=== PATIENT | female | born 1955 | race Caucasian/White ===

== ENCOUNTER 2023-06-26 12:56 | Outpatient (AMB) | payer MEDICARE, SELFPAY ==
--- NOTE | 2023-06-26 13:10 | MHC.OFFVIS ---
Intake Intake Visit Reasons: second opinion Intake Note: New Patient presents for initial visit for 2nd opinion interstitial cystitis Urology Medications: none Blood Thinner:none Head Of Product Required: No Accompanied by: Spouse Allergies unknown allergies Allergy (Uncoded 06/26/23 13:34) Unknown HPI HPI Comments History of Present Illness Details This is a 68-year-old female patient. She presents to the office today as a new patient for a 2nd opinion. In discussion with the patient today she reports previously following up with [facility] for her ongoing lower urinary tract symptoms. In review of patient's chart it appears patient with rectocele, cystocele, and intussusception with a pessary in place. It appears she was treated for interstitial cystitis. Rescue solution and installation teaching was completed at previous urology clinic. Chocolate is a known interstitial cystitis trigger for her. She continues to follow IC diet, taking Prelief, azo, and p.r.n. hypophen. However feels Hyophen worsen her AFib symptoms. She was previously given samples of Gemtesa however felt symptoms of retention and thus discontinued medication immediately. It appears patient was considering Botox however given bladder pain/pressure is her main concern and not urinary urge and frequency thus Botox was not considered. She was offered trial of interstitial cystitis medications such as Elmiron, hydroxyzine, and amitriptyline but she is worried this may worsen her atrial fibrillation. She discusses following up with [facility] regarding her cystocele, rectocele, and pessary. She discusses having a surgical evaluation for repair however has not proceeded with surgical intervention given her 6 week postop recovery period and recommendations were made for absence during this period. In office urinalysis results reviewed with the patient today. 1+ leukocytes positive nitrates. Discussed other options for question of interstitial cystitis such as in office cystoscopy, cystoscopy with hydrodistention, low-dose Cialis, or low-dose antibiotic therapy. Discussed at length bladder triggers and pelvic floor therapy. Patient discusses her upcoming trip to [place] and will undergo pelvic floor therapy there due to the limited availability on this area. She currently reports urinary frequency, urinary urgency, and bladder pressure. Discussed obtaining retroperitoneal ultrasound for further assessment evaluation and will send urine today for urine culture. Discussed, educated, and stressed the importance of drinking plenty of water daily. She otherwise offers no other issues or concerns at this time. [facility] Medical History (Updated 06/26/23 @ 14:35 by MELIA Hernandez) Palpitations Atrial fibrillation Review of Systems Eyes Reports no additional complaints ENT Reports no additional complaints Card Reports as per HPI Resp Reports no additional complaints GI Reports as per HPI Reports as per HPI Musc Reports no additional complaints Neuro Reports no additional complaints Psych Reports no additional complaints Endo Reports no additional complaints Clifton/Lymph Reports no additional complaints Aller/Immun Reports no additional complaints Physical Exam Const General: cooperative, healthy appearing, comfortable, no acute distress, well developed, alert and awake Nutritional Appearance: thin Orientation/consciousness: patient oriented x3 Limitations: no limitations HEENT Head: Yes normal to inspection, Yes normocephalic and Yes atraumatic Ears: hearing grossly normal bilaterally Eyes General: appearance normal, both eyes and all related structures Neck Neck: Yes normal visual inspection and Yes trachea midline Chest Chest palpation & inspection: normal inspection of the chest Resp Effort & Inspection: normal respiratory effort and able to speak in complete sentences Cardio Rate: regular rate GI Inspection: Yes normal to inspection General: Yes no CVA tenderness Back/Spine/Pelvis Back: no CVA tenderness Skin General skin exam: no rashes or lesions noted Neuro General: patient oriented x3 Extrem General: Yes normal to inspection Psych Appearance: grossly normal and well kempt Mental Status: mental status grossly normal Speech and movement: Normal speech and movement present and Clear speech present Affect: normal affect Attitude: cooperative Thought process: Normal thought process present Thought content: Normal thought content present Insight: Fair insight present (Psych) Judgement: Fair judgement present (Psych) Results AMB Urinalysis, Automated UA Leukoctes 15 Param/uL Last Edit by Raj Avendano on 06/26/23 14:00 UA Nitrite Positive Last Edit by Raj Avendano on 06/26/23 14:00 UA Urobilinogen 0.2 mg/dL Last Edit by Raj Avendano on 06/26/23 14:00 UA Protein 0 mg/dL Last Edit by Raj Avendano on 06/26/23 14:00 UA pH 6.5 Last Edit by Raj Avendano on 06/26/23 14:00 UA Blood 0 David/uL Last Edit by Raj Avendano on 06/26/23 14:00 UA Specific Bryant 1.015 Last Edit by Raj Avendano on 06/26/23 14:00 UA Ketone Negative Last Edit by Raj Avendano on 06/26/23 14:00 UA Bilirubin 0 mg/dL Last Edit by Raj Avendano on 06/26/23 14:00 UA Glucose 0 mg/dL Last Edit by Raj Avendano on 06/26/23 14:00 Results Reviewed Results Reviewed: Laboratory Last Values Urine pH (Auto) 6.5 06/26/23 13:36 Specific Bryant (Auto) 1.015 06/26/23 13:36 Urine Protein (Auto) 0 mg/dL 06/26/23 13:36 Glucose (UA)(Auto) 0 mg/dL 06/26/23 13:36 Urine Ketones (Auto) Negative 06/26/23 13:36 Urine Blood (Auto) 0 David/uL 06/26/23 13:36 Urine Nitrite (Auto) Positive 06/26/23 13:36 Urine Bilirubin (Auto) 0 mg/dL 06/26/23 13:36 Urine Urobilinogen (Auto) 0.2 mg/dL 06/26/23 13:36 Leukocyte Esterase (Auto) 15 Param/uL 06/26/23 13:36 Assessment & Plan Assessment & Plan (1) Presence of pessary: Code(s): Z96.0 - Presence of urogenital implants (2) Cystocele with prolapse: Code(s): N81.4 - Uterovaginal prolapse, unspecified (3) Rectocele: Code(s): N81.6 - Rectocele (4) Sensation of pressure in bladder area: Code(s): R39.89 - Other symptoms and signs involving the genitourinary system (5) Urinary urgency: Code(s): R39.15 - Urgency of urination (6) Urinary frequency: Code(s): R35.0 - Frequency of micturition Plan In office urinalysis results reviewed with the patient today; will send for urine culture. Start low-dose Macrobid therapy as discussed and prescribed. Patient with borderline hypotension; thus low-dose Cialis might not be an option at this time. Discussed obtaining retroperitoneal ultrasound for further assessment evaluation. Discussed bladder triggers/irritants and interstitial cystitis diet. Continue/start pelvic floor therapy as discussed. Will plan for in office cystoscopy for further assessment evaluation Orders: Orders AMB Urinalysis Automated Today Z13.9 - Encounter for screening, unspecified US retroperitoneal comp Today N81.4 - Uterovaginal prolapse, unspecified, N81.6 - Rectocele, R35.0 - Frequency of micturition, R39.15 - Urgency of urination, R39.89 - Other symptoms and signs involving the genitourinary system, Z96.0 - Presence of urogenital implants Urine Culture Today R39.15 - Urgency of urination Medications: New nitrofurantoin macrocrystal must administer with a meal/food 50 mg PO BEDTIME 90 days 90 caps 1RF N39.0 - Urinary tract infection, site not specified Patient Instructions: The patient had an opportunity to ask questions regarding the treatment plan. All questions were answered. Physical exam, labs, and imaging were discussed and reviewed in detail. As well as risks, benefits, and discussion of treatment choices. No major barriers to understanding were identified. The patient expressed understanding and agreement with the above treatment plan. The patient was made aware they should contact our office by phone for worsening of their current condition, the appearance of new symptoms, or with any questions or concerns. Compliance is encouraged with any medications and follow up testing that is ordered. It is a privilege to be allowed the opportunity to participate in? your urological care.? Again, if you have any questions or concerns If you have any questions or concerns please do not hesitate to contact me. The office is [phone]. This note is constructed using voice recognition software. While every effort has been made to ensure accuracy security operations engineer errors may have been included. Yours sincerely, MELIA Hernandez Coding Level of Care Code New Pt Level 4 (38142) Diagnoses Presence of pessary Z96.0 Cystocele with prolapse N81.4 Rectocele N81.6 Sensation of pressure in bladder area R39.89 Urinary urgency R39.15 Urinary frequency R35.0
== END 2023-06-26 14:08 | disposition home or self-care (01) ==
PROVIDERS: Visit Provider Nurse Practitioner Family
DX: Z96.0 Presence of urogenital implants (principal); N81.4 Uterovaginal prolapse, unspecified; N81.6 Rectocele; R39.89 Other symptoms and signs involving the genitourinary system; R39.15 Urgency of urination; R35.0 Frequency of micturition; Z13.9 Encounter for screening, unspecified
CPT/HCPCS: 99204

== ENCOUNTER 2023-06-26 12:56 | Outpatient (REF) | payer MEDICARE, SELFPAY | END 2023-06-26 12:57 | disposition home or self-care (01) | LOC: HO.LNP 12:56 | PROVIDERS: Visit Provider Nurse Practitioner Family | DX: R39.15 Urgency of urination (principal); N81.4 Uterovaginal prolapse, unspecified; R35.0 Frequency of micturition; R39.89 Other symptoms and signs involving the genitourinary system | CPT/HCPCS: 81003; 87086 ==

== ENCOUNTER 2023-06-28 15:07 | Emergency (ER) | payer MEDICARE, SELFPAY ==
--- NOTE | ~2023-06-28 | XR_ITS ---
EXAMINATION: XR ABDOMEN COMPLETE CLINICAL INDICATION: Reason for Exam constipation COMPARISON: None TECHNIQUE: 2 views of the abdomen. FINDINGS: Lines or devices: None. Nonobstructive bowel gas pattern. Mild colonic stool burden. No extraluminal subdiaphragmatic air. Calcified phleboliths in the pelvis. Indeterminate 9 mm sclerotic lesion in the left iliac bone. XR/XR abdomen min 2V IMPRESSION: 1. Nonobstructive bowel gas pattern. Mild colonic stool burden. 2. Indeterminate 9 mm sclerotic lesion in the left iliac bone. In the absence of any primary history of malignancy, findings may reflect a bone island. If patient has a history of malignancy a CT pelvis or bone scan could be obtained for further evaluation.
--- NOTE | 2023-06-28 15:43 | ED.ABDPAIN ---
HPI - Abdominal Pain General Chief Complaint: Urogenital-Female Stated Complaint: abdominal pain, vomiting Time Seen by Provider: 06/29/23 01:06 Source: patient Mode of arrival: ambulatory Limitations: no limitations History of Present Illness HPI narrative: Patient's history of interstitial cystitis been followed by [facility] for long time seen by [facility] on 06/26/2023 for 2nd opinion with history of rectocele, cystocele and intussusception with the pessary in place on low-dose Macrobid comes here for ongoing suprapubic pain plan to have retroperitoneal ultrasound and cysoscopy as outpatient, sees that she vomited 2 times yesterday and once today labs were done prior to my evaluation showed sodium of 128 patient is concerned about sodium. Urine shows nitrite positive no bacteria previous culture was negative no fever no chills no abdominal distension had watery stool in the morning today bladder scan done showed 76 cc of urine Related Data Home Medications Medication Instructions Recorded Confirmed estradiol 0.01% (0.1 mg/gram) vaginal 06/26/23 vaginal cream evolocumab 140 mg/mL subcutaneous mg subcut 06/26/23 pen injector (Rivera Flaherty) lorazepam 1 mg tablet 1 mg PO DAILY PRN 06/26/23 sertraline 25 mg tablet 25 mg PO DAILY 06/26/23 zolpidem 10 mg tablet 10 mg PO BEDTIME PRN 06/26/23 Previous Rx's Medication Instructions Recorded nitrofurantoin macrocrystal 50 mg 50 mg PO BEDTIME 90 days #90 caps 06/26/23 capsule tramadol 50 mg tablet 50 mg PO Q8-10H PRN pain #20 tabs 06/29/23 Allergies Allergy/AdvReac Type Severity Reaction Status Date / Time unknown allergies Allergy Unknown Uncoded 06/26/23 13:34 Review of Systems Review of Systems Yes all other systems are reviewed and are negative PMFSH Past Medical History Medical History Palpitations Atrial fibrillation Social History Social History Alcohol intake: never Smoked in Last 30 Days: No Use of substances other than those prescribed or required for medical reasons: No Advance Directives: No Advance Directives Information Provided: Yes Physical Exam ED Vital Signs: Vital Signs - 24 hr 06/28/23 15:44 06/29/23 00:02 06/29/23 01:45 Temperature 99.4 F 97.8 F 97.9 F Pulse Rate 84 51 58 Respiratory Rate 16 16 16 Blood Pressure 155/84 H 105/58 L 107/61 Pulse Oximetry 98 99 95 Oxygen Delivery Method Room Air Room Air Room Air BMI result Body Mass Index 21.6 Appearance: Alert. Oriented X3. No acute distress. Eyes: No pallor or icterus ENT: Pharynx normal. Oral Mucosa moist Neck: Normal inspection. Neck supple. CVS: Normal heart rate and rhythm. Pulses normal. Respiratory: No respiratory distress. Equal air entry bilateral, no wheezing/rales/rhonchi Abdomen: Soft, mild suprapubic tenderness Bowel sounds are present, no mass palpable, no CVA tenderness Skin: Skin warm and dry. Normal skin color. Normal skin turgor. Extremities: No lower extremity edema. No calf tenderness Neuro: Oriented X 3. No motor deficit. Course Course Course Narrative: RME: 68yo F w/PMHx cystocele w/prolapse, rectocele, c/o urinary retention x4hrs, nausea, dysuria, constipation x mos (small BM this AM). Saw urology on 06/26, started on Macrobid. Also taking Azo w/o relief. Labs, UA, Bladder scan ordered Full HPI, ROS and PE to be performed by primary ED provider. Medical Decision Making Medical Decision Making [facility] Narrative: Patient with chronic interstitial cystitis with slightly rules low sodium of 128 likely from decreased oral sodium intake and vomiting which was replaced by IV fluids check patient home advised to follow-up with urologist Differential Diagnosis Differential Diagnoses: The differential diagnosis associated with the presentation includes Chronic interstitial cystitis/cystocele/UTI Lab Data [facility] Lab Attestation statement: I reviewed the patient's lab results. 06/28/23 16:24 06/28/23 16:24 Labs: Lab Results 06/28/23 Range/Units 16:24 WBC 6.3 (4.8-10.8) X10*3/uL RBC 3.97 L (4.20-5.50) X10*6/uL Hgb 12.1 (12.0-16.0) g/dl Hct 35.6 L (37.0-47.0) % MCV 89.7 (80.0-98.0) fL MCH 30.5 (27.0-33.0) pg MCHC 34.0 (31.0-35.0) g/dl RDW 11.8 (11.0-16.0) % Plt Count 270 (160-400) X10*3/uL MPV 9.4 (9.4-12.3) fL Immature Gran % (Auto) 0.3 (0.0-0.4) % Neut % (Auto) 74.5 H (45-73) % Lymph % (Auto) 18.5 L (20-40) % Lewis % (Auto) 6.5 (2-11) % Eos % (Auto) 0.0 (0-4) % Baso % (Auto) 0.2 (0-2) % Lymph # (Auto) 1.2 (1.2-4.9) X10*3/uL Lewis # (Auto) 0.4 (0.1-1.2) X10*3/uL Eos # (Auto) 0.0 (0.0-0.4) X10*3/uL Baso # (Auto) 0.0 (0.0-0.2) X10*3/uL Abs Immat Gran (auto) 0.02 (0.00-0.03) X10*3/uL Absolute Neuts (auto) 4.7 (2.0-8.3) x10*3/uL Absolute Nucleated RBC 0.000 (0.0-0.012) X10*3/uL Nucleated RBC % (auto) 0.0 (0.0-0.2) /100WBC Sodium 128 L (135-145) mmol/L Potassium 3.8 (3.3-5.1) mmol/L Chloride 93 L (96-108) mmol/L Carbon Dioxide 24 (22-29) mmol/L Anion Gap 15 (12-20) BUN 6 L (9-16) mg/dL Creatinine 0.62 (0.5-1.4) mg/dL Estim Creat Clear Calc 71.8 Estimated GFR > 60 Random Glucose 102 (60-115) mg/dL Calcium 9.0 (8.4-10.2) mg/dL Magnesium 2.0 (1.6-2.6) mg/dL Total Bilirubin 0.6 (0.0-1.0) mg/dL Direct Bilirubin 0.1 (0.0-0.5) mg/dL AST 25 (5-31) U/L ALT 15 (0-31) U/L Alkaline Phosphatase 67 (39-117) U/L Total Protein 6.6 (6.5-8.0) g/dL Albumin 4.0 (3.5-5.0) g/dL Lipase 21 (8-78) U/L Urine Color Dark Yellow Urine Appearance Clear Urine pH 6.5 (5.0-9.0) Ur Specific [place] <= 1.005 (1.005-1.025) Urine Protein Negative (Neg-Trace) mg/dL Urine Glucose (UA) Negative (Negative) mg/dL Urine Ketones 15 (Negative) mg/dL Urine Blood Negative (Negative) Urine Nitrite Positive H (Negative) Ur Leukocyte Esterase Negative (Negative) Urine RBC 0-2 (0-2) /HPF Urine WBC 0-5 (0-5) /HPF Ur Squamous Epith Cells 0-2 (0-2) /HPF Urine Bacteria None Seen (None Seen) Hyaline Casts 0-2 (0-2) /LPF Medications Administered Discontinued Medications Generic Name Dose Route Start Last Admin Trade Name Freq PRN Reason Stop Dose Admin Sodium Chloride 1,000 mls @ 999 mls/hr 06/29/23 01:20 06/29/23 01:51 Ns IV 06/29/23 02:20 999 mls/hr .Q1H1M ONE Administration Morphine Sulfate 2 mg 06/29/23 01:20 06/29/23 01:47 Morphine Sulfate 2 Mg/Ml Cartridge IVPUSH 06/29/23 01:21 2 mg ONCE ONE Administration Protocol Ondansetron HCl 4 mg 06/29/23 01:20 06/29/23 01:48 Ondansetron Hcl 4 Mg/2 Ml Vial IVPUSH 06/29/23 01:21 4 mg ONCE ONE Administration Discharge Plan Discharge Clinical Impression: Interstitial cystitis Patient Disposition: Home, Self-Care Instructions: Interstitial Cystitis (ED) Additional Instructions: Drink plenty fluids Continue management for your interstitial cystitis as advised by Urology Tramadol for lower abdominal pain Follow-up with urology Prescriptions: New tramadol 50 mg tablet 50 mg PO Q8-10H PRN (Reason: pain) Qty: 20 0RF No Action Repatha SureClick 140 mg/mL pen injector subcut zolpidem 10 mg tablet 10 mg PO BEDTIME PRN lorazepam 1 mg tablet 1 mg PO DAILY PRN sertraline 25 mg tablet 25 mg PO DAILY estradiol 0.01 % (0.1 mg/gram) cream vaginal nitrofurantoin macrocrystal 50 mg capsule 50 mg PO BEDTIME 90 Days Qty: 90 1RF Rx Instructions: must administer with a meal/food Interventions: ED Discharge Assessment Last Done: 06/29/23 02:42 Discharge Date/Time: 06/29/23 02:43
[2023-06-28 15:44] VITALS: BP 155/84; PULSE 84; RESP 16; TEMP 37.4; O2SAT 98; BMI 21.6
[2023-06-28 16:40] LABS: MANUAL DIFF FLAG NO
[2023-06-28 16:42] LABS: Basophils Percent Auto 0.2 % (0-2); Hematocrit 35.6 % (37.0-47.0); Hemoglobin 12.1 g/dl (12.0-16.0); Imm Gran Abs Auto 0.02 X10*3/uL (0.00-0.03); Imm Gran Pct Auto 0.3 % (0.0-0.4); Lymphocytes Absolute Auto 1.2 X10*3/uL (1.2-4.9); Lymphocytes Percent Auto 18.5 % (20-40); Mean Corpuscular Hemoglobin 30.5 pg (27.0-33.0); Mean Corpuscular Volume 89.7 fL (80.0-98.0); Mean Platelet Volume 9.4 fL (9.4-12.3); Monocytes Absolute Auto 0.4 X10*3/uL (0.1-1.2); Monocytes Percent Auto 6.5 % (2-11); Neutrophils Absolute Auto 4.7 x10*3/uL (2.0-8.3); Neutrophils Percent Auto 74.5 % (45-73); Platelet Count 270 X10*3/uL (160-400); Red Blood Count 3.97 X10*6/uL (4.20-5.50); Red Cell Distribution Width 11.8 % (11.0-16.0); White Blood Count 6.3 X10*3/uL (4.8-10.8)
[2023-06-28 16:43] LABS: Appearance Urine Clear; Color Urine Dark Yellow; Glucose Urine UA Negative (Negative); Leukocyte Esterase Urine Negative (Negative); Nitrite Urine Positive (Negative); PH 6.5 (5.0-9.0); Specific Gravity - Urine <= 1.005 (1.005-1.025); UMIC TRIGGER UACC YES; Urine Blood Negative (Negative); Urine Ketones 15 mg/dL (Negative); Urine Protein Negative (Neg-Trace)
[2023-06-28 16:54] LABS: Bacteria Urine None Seen (None Seen); Hyaline Casts Urine 0-2 /LPF (0-2); RBC Urine 0-2 /HPF (0-2); Squamous Epithelial Cell Urine 0-2 /HPF (0-2); UACC Culture Trigger YES; WBC Urine 0-5 /HPF (0-5)
[2023-06-28 17:09] LABS: Alanine Aminotransferase 15 U/L (0-31); Alkaline Phosphatase 67 U/L (39-117); Anion Gap 15 (12-20); Aspartate Amino Transferase 25 U/L (5-31); Bilirubin Direct 0.1 mg/dL (0.0-0.5); Bilirubin Total 0.6 mg/dL (0.0-1.0); Blood Urea Nitrogen 6 mg/dL (9-16); Carbon Dioxide 24 mmol/L (22-29); Chloride 93 mmol/L (96-108); Creatinine Clr Calc Pharmacy 71.8; Estimated Glomerular Filt Rate > 60; Glucose Random 102 mg/dL (60-115); Potassium 3.8 mmol/L (3.3-5.1); Sodium 128 mmol/L (135-145); Total Protein 6.6 g/dL (6.5-8.0)
[2023-06-28 17:32] LABS: Lipase 21 U/L (8-78)
[2023-06-29 00:02] VITALS: BP 105/58; PULSE 51; RESP 16; TEMP 36.6; O2SAT 99
[2023-06-29 01:45] VITALS: BP 107/61; PULSE 58; RESP 16; TEMP 36.6; O2SAT 95
[2023-06-29] MEDS: Morphine Sulfate 2 MG/ML CARTRIDGE IVPUSH (01:47)
[2023-06-29] MEDS: ondansetron HCL 4 MG/2 ML VIAL IVPUSH (01:48)
[2023-06-29] MEDS: 0.9 % Sodium Chloride 1,000 ML 999 ML IV (01:51)
== END 2023-06-29 02:43 | disposition home or self-care (01) ==
PROVIDERS: Physician Assistant; Emergency Provider Internal Medicine
DX: N30.10 Interstitial cystitis (chronic) without hematuria (principal); R33.9 Retention of urine, unspecified; R10.30 Lower abdominal pain, unspecified; Z79.899 Other long term (current) drug therapy; I48.91 Unspecified atrial fibrillation
CPT/HCPCS: 36415; 51798; 74019; 80048; 80076; 81001; 83690; 83735; 85025; 87086; 96374; 96375; 99284; 99285; J2270; J2405

== ENCOUNTER 2023-08-09 16:05 | Outpatient (AMB) | payer MEDICARE, SELFPAY ==
--- NOTE | 2023-08-09 16:07 | MHC.OFFVIS ---
Intake Intake Visit Reasons: IC- consult Intake Note: Patient is Present for Follow Up Urology Medication:estradiol Antibiotic Allergies: None Blood Thinners: None Allergies unknown allergies Allergy (Uncoded 08/09/23 16:16) Unknown Medication List - Last Reconciled 08/10/23 by Denzel Aguilar MD estradiol 0.01%(0.1mg/gram) vaginal evolocumab (Repatha SureClick) mg subcut hyoscyamine sulfate (Levsin/SL) 0.125 mg sublingual TID PRN lorazepam 1 mg PO DAILY PRN nitrofurantoin macrocrystal 50 mg PO BEDTIME 90 days phenazopyridine (Pyridium) 200 mg PO Q8H PRN sertraline 25 mg PO DAILY tramadol 50 mg PO Q8-10H PRN zolpidem 10 mg PO BEDTIME PRN HPI HPI Comments History of Present Illness Details Lisbeth is a pleasant female. She seen for the following urologic conditions - interstitial cystitis - 3 compartment prolapse Discussed referral At this point going down to [place] Would like to be reviewed in 6 months Interstitial cystitis Prior diagnosis Is stable from diet Appears to be aggravated by bowel habits May well be more overactive bladder with bladder irritants rather than true interstitial cystitis Has undergone pelvic floor therapy previously Multiple previous options have been discussed with prior Urology - [facility] Uterine prolapse Prior evaluation with [facility]rogyne[facility] Known cystocele, rectocele with cervical prolapse Does well with pessary Was off a transvaginal repair Did discuss potential for robotic sacrocolpopexy and associated rectocele repair Sexual function is important to her Has constipation which may be aggravated by rectocele Recommend repeat evaluation Will refer to [facility] Urogynecology Department [facility] Medical History Palpitations Atrial fibrillation Social History Alcohol intake: never Review of Systems Const Denies chills and Denies fever(s) Card Reports no additional complaints and Denies syncope Resp Denies cough GI Denies abdominal pain and Denies heartburn Reports as per HPI and Denies change in libido Neuro Denies syncope Psych Denies change in libido Endo Denies change in libido Physical Exam Const General: cooperative, healthy appearing, comfortable and no acute distress Orientation/consciousness: patient oriented x3 HEENT Face and sinus: Yes normal facial exam Mouth: moist mucous membranes Neck Neck: Yes normal visual inspection, Yes full ROM and Yes trachea midline Chest Chest palpation & inspection: normal inspection of the chest Resp Effort & Inspection: normal respiratory effort, able to speak in complete sentences and no respiratory distress GI Inspection: Yes normal to inspection Back/Spine/Pelvis Cervical Spine: normal cervical lordosis Thoracic/Lumbar Spine: thoracic and lumbar spine normal to inspection Skin General skin exam: no rashes or lesions noted Neuro General: patient oriented x3, gait normal, tone normal and moves all extremities Extrem General: Yes normal to inspection and Yes capillary refill normal Assessment & Plan Assessment & Plan (1) Cystocele with prolapse: Code(s): N81.4 - Uterovaginal prolapse, unspecified (2) Rectocele: Code(s): N81.6 - Rectocele Plan Four week follow-up Orders: Referrals Urogynecology Referral N81.4 - Uterovaginal prolapse, unspecified Patient Instructions: Imaging studies, laboratory and physical exam results were discussed and reviewed in detail. No major barriers to patient understanding were identified. An opportunity to ask questions regarding the treatment plan was provided. All questions were answered. The patient expressed understanding and agreement with the above treatment plan. The patient is aware they should contact our office by phone for worsening of their current condition or the appearance of new urologic symptoms. Compliance is encouraged with any medications and followup testing that is ordered. It is a privilege to participate in the urologic care of your patient. If you have any questions or concerns regarding treatment for the above conditions, or other urologic issues, please do not hesitate to contact me. The office telephone contact is [phone]. This note is constructed using voice recognition software. While every effort has been made to ensure accuracy jig mill operator errors may have been included. Yours sincerely, Dr Denzel Aguilar MD, [facility] - Urology Providers of Expert, Compassionate Care for the Genitourinary System Coding Level of Care Code Est Pt Level 3 (67389) Diagnoses Cystocele with prolapse N81.4 Rectocele N81.6
== END 2023-08-09 16:53 | disposition home or self-care (01) ==
LOC: HO.HUSH 16:05
PROVIDERS: Visit Provider Urology
DX: N81.4 Uterovaginal prolapse, unspecified (principal); N81.6 Rectocele
CPT/HCPCS: 99213

== ENCOUNTER → 2023-08-09 16:05 | Outpatient (BNVA) | payer MEDICARE, SELFPAY | PROVIDERS: Visit Provider Urology | DX: N81.4 Uterovaginal prolapse, unspecified (principal); R35.0 Frequency of micturition; R39.15 Urgency of urination; N30.10 Interstitial cystitis (chronic) without hematuria; Z96.0 Presence of urogenital implants | CPT/HCPCS: 99212 ==

== ENCOUNTER 2023-08-14 10:02 | Outpatient (REF) | payer MEDICARE, SELFPAY ==
--- NOTE | ~2023-08-14 | US_ITS ---
EXAMINATION: US RETROPERITONEAL COMPLETE (RENAL) CLINICAL INFORMATION: Frequency of micturition. COMPARISON: X-ray abdomen complete 06/28/2023. TECHNIQUE: Real-time imaging of the kidneys and bladder. Limited visualization due to bowel gas. FINDINGS: RIGHT KIDNEY: 10.4 x 3.9 x 5.2 cm (SAG x AP x TRV). No hydronephrosis. No renal calculi. Renal cortical thickness is normal. Limited visualization. LEFT KIDNEY: 10.9 x 4.8 x 4.5 cm (SAG x AP x TRV). No hydronephrosis. No renal calculi. Renal cortical thickness is normal. Limited visualization. . A 1.8 x 1.2 x 1.4 cm left renal interpolar cyst. There is no indication for follow-up imaging. Parapelvic cysts, largest 1.3 cm with benign features. BLADDER: Well-distended. Mild diffuse irregularity of the bladder wall. Bilateral ureteral jets are demonstrated. Prevoid bladder volume is 231.9 mL. Postvoid bladder volume is 16.2 mL. US/US retroperitoneal comp IMPRESSION: No hydronephrosis. No renal calculi. Post void bladder volume 16.2 mL..
== END 2023-08-14 10:03 | disposition home or self-care (01) ==
LOC: HO.US 10:02
PROVIDERS: Visit Provider Nurse Practitioner Family
DX: R35.0 Frequency of micturition (principal); R39.15 Urgency of urination; R39.89 Other symptoms and signs involving the genitourinary system; N81.6 Rectocele; Z96.0 Presence of urogenital implants
CPT/HCPCS: 76770

== ENCOUNTER 2023-09-08 11:36 | Outpatient (AMB) | payer MEDICARE, SELFPAY ==
--- NOTE | 2023-09-08 11:57 | A.OFFVIS_ITS ---
Intake Intake Visit Reasons: 4w follow up Intake Note: Patient is Present for Follow Up Urology Medication: Estradiol Antibiotic Allergies: None Blood Thinners: None Allergies unknown allergies Allergy (Uncoded 08/09/23 16:16) Unknown HPI HPI Comments History of Present Illness Details Lisbeth is a pleasant female. She seen for the following urologic conditions - interstitial cystitis - 3 compartment prolapse Currently stable regarding IC Maintaining diet Discussed referral to [facility] Interested in pursuing next April Interstitial cystitis Prior diagnosis Is stable from diet Appears to be aggravated by bowel habits May well be more overactive bladder with bladder irritants rather than true interstitial cystitis Has undergone pelvic floor therapy previously Multiple previous options have been discussed with prior Urology - [facility] Uterine prolapse Prior evaluation with [facility] Known cystocele, rectocele with cervical prolapse Does well with pessary Was offered transvaginal repair Did discuss potential for robotic sacrocolpopexy and associated rectocele repair Sexual function is important to her Has constipation which may be aggravated by rectocele Recommend repeat evaluation Will refer to [facility] Department [facility] Medical History Palpitations Atrial fibrillation Social History Alcohol intake: never Review of Systems Const Denies chills and Denies fever(s) Card Reports no additional complaints and Denies syncope Resp Denies cough GI Denies abdominal pain and Denies heartburn Reports as per HPI and Denies change in libido Neuro Denies syncope Psych Denies change in libido Endo Denies change in libido Physical Exam Const General: cooperative, healthy appearing, comfortable and no acute distress Orientation/consciousness: patient oriented x3 HEENT Face and sinus: Yes normal facial exam Mouth: moist mucous membranes Neck Neck: Yes normal visual inspection, Yes full ROM and Yes trachea midline Chest Chest palpation & inspection: normal inspection of the chest Resp Effort & Inspection: normal respiratory effort, able to speak in complete sentences and no respiratory distress GI Inspection: Yes normal to inspection Back/Spine/Pelvis Cervical Spine: normal cervical lordosis Thoracic/Lumbar Spine: thoracic and lumbar spine normal to inspection Skin General skin exam: no rashes or lesions noted Neuro General: patient oriented x3, gait normal, tone normal and moves all extremities Extrem General: Yes normal to inspection and Yes capillary refill normal Assessment & Plan Assessment & Plan (1) Cystocele with prolapse: Code(s): N81.4 - Uterovaginal prolapse, unspecified (2) Interstitial cystitis: Code(s): N30.10 - Interstitial cystitis (chronic) without hematuria Plan April follow-up Patient Instructions: Imaging studies, laboratory and physical exam results were discussed and reviewed in detail. No major barriers to patient understanding were identified. An opportunity to ask questions regarding the treatment plan was provided. All questions were answered. The patient expressed understanding and agreement with the above treatment plan. The patient is aware they should contact our office by phone for worsening of their current condition or the appearance of new urologic symptoms. Compliance is encouraged with any medications and followup testing that is ordered. It is a privilege to participate in the urologic care of your patient. If you have any questions or concerns regarding treatment for the above conditions, or other urologic issues, please do not hesitate to contact me. The office telephone contact is [phone]. This note is constructed using voice recognition software. While every effort has been made to ensure accuracy chartered accountant errors may have been included. Yours sincerely, Dr Denzel Aguilar MD, [facility] - Urology Providers of Expert, Compassionate Care for the Genitourinary System Coding Level of Care Code Est Pt Level 3 (24519) Diagnoses Cystocele with prolapse N81.4 Interstitial cystitis N30.10
== END 2023-09-08 12:22 | disposition home or self-care (01) ==
PROVIDERS: Visit Provider Urology
DX: N81.4 Uterovaginal prolapse, unspecified (principal); N30.10 Interstitial cystitis (chronic) without hematuria
CPT/HCPCS: 99213

== ENCOUNTER → 2023-09-08 11:36 | Outpatient (BNVA) | payer MEDICARE, SELFPAY | PROVIDERS: Visit Provider Urology | DX: N81.4 Uterovaginal prolapse, unspecified (principal); N30.10 Interstitial cystitis (chronic) without hematuria | CPT/HCPCS: 99212 ==

== ENCOUNTER → 2024-05-28 11:31 | Outpatient (BNVA) | payer MEDICARE, SELFPAY | PROVIDERS: Visit Provider Urology ==